=== PATIENT | male | born 1980 | race Two or more races ===

== ENCOUNTER 2019-07-20 10:16 | Emergency (ER) | payer OTHER ==
[~2019-07-20] VITALS: Ht 195.6 cm; Wt 103.0 kg
[2019-07-20 10:47] VITALS: BP 136/86
[2019-07-20] MEDS ORDERED: cefTRIAXone SODIUM 250 MG VL IM ONE (11:30)
[2019-07-20] MEDS ORDERED: AZITHROMYCIN 250 MG TAB PO ONE (11:30)
[2019-07-22 09:43] LABS: Hepatitis B Surface Antibody Positive
[2019-07-22 11:45] LABS: Hepatitis B Surface Antigen Negative (Negative)
== END 2019-07-20 12:40 | disposition home or self-care (01) ==
LOC: ER 10:26
DX: A64 Unspecified sexually transmitted disease (principal); F41.9 Anxiety disorder, unspecified; F17.200 Nicotine dependence, unspecified, uncomplicated
CPT/HCPCS: 36415; 86703; 86706; 86803; 87340; 96372; 99283; J0696

== ENCOUNTER 2019-08-24 13:22 | Emergency (ER) | payer OTHER ==
[~2019-08-24] VITALS: Ht 195.6 cm; Wt 102.1 kg
[2019-08-24 13:34] VITALS: BP 139/64
== END 2019-08-24 15:31 | disposition home or self-care (01) ==
LOC: ER 13:22
DX: S30.813A Abrasion of scrotum and testes, initial encounter (principal); F17.210 Nicotine dependence, cigarettes, uncomplicated; W26.9XXA Contact with unspecified sharp object(s), initial encounter; Y93.89 Activity, other specified; Y99.8 Other external cause status; Y92.89 Other specified places as the place of occurrence of the external cause

== ENCOUNTER 2020-04-08 08:26 | Emergency (ER) | payer MEDICAID, OTHER ==
[~2020-04-08] VITALS: Ht 195.6 cm; Wt 106.6 kg
[2020-04-08 08:35] VITALS: BP 146/100
[2020-04-08] MEDS ORDERED: KETOROLAC TROMETH 60MG/2ML VIAL IM ONE (09:30)
== END 2020-04-08 10:06 | disposition home or self-care (01) ==
LOC: ER 08:26
DX: S39.012A Strain of muscle, fascia and tendon of lower back, initial encounter (principal); M54.42 Lumbago with sciatica, left side; M54.41 Lumbago with sciatica, right side; F17.210 Nicotine dependence, cigarettes, uncomplicated; X50.9XXA Other and unspecified overexertion or strenuous movements or postures, initial encounter; Y93.89 Activity, other specified; Y92.89 Other specified places as the place of occurrence of the external cause; Y99.8 Other external cause status
CPT/HCPCS: 96372; 99283; J1885

== ENCOUNTER 2020-05-08 08:32 | Emergency (ER) | payer MEDICAID ==
[~2020-05-08] VITALS: Ht 193 cm; Wt 106.6 kg
[2020-05-08 08:57] VITALS: BP 139/76
[2020-05-08] MEDS ORDERED: METHOCARBAMOL 500 MG TAB PO ONE (09:45)
[2020-05-08] MEDS ORDERED: KETOROLAC TROMETH 60MG/2ML VIAL IM ONE (09:45)
== END 2020-05-08 09:54 | disposition home or self-care (01) ==
LOC: ER 08:32
DX: M54.16 Radiculopathy, lumbar region (principal)
CPT/HCPCS: 72100; 96372; 99283; J1885